=== PATIENT | female | born 1930 | race Caucasian/White ===

== ENCOUNTER 2016-08-24 12:35 | Inpatient (IN) | payer OTHER ==
[~2016-08-24] VITALS: Ht 147.3 cm; Wt 49.2 kg
[2016-08-24] MEDS ORDERED: AMLODIPINE BES2.5 M1 PO (14:00)
[2016-08-24] MEDS ORDERED: ENALAPRIL MALE2.5 MG PO (14:01)
[2016-08-24] MEDS ORDERED: ZOLOFT25 MG PO (14:01)
[2016-08-24] MEDS ORDERED: CLONAZEPAM0.5 MG PO (14:01)
[2016-08-24] MEDS ORDERED: PEPCID20 MG PO (14:01)
[2016-08-24 14:42] LABS: BASOPHIL % 0.2 % (0-2); PLATELET COUNT 314 x10^3mcL (130-400)
[2016-08-24 14:43] LABS: RED CELL DISTRIBUTION WIDTH 14.8 % (11.5-14.5)
[2016-08-24 15:09] LABS: ALKALINE PHOSPHATASE 92 U/L (46-116); ALT/SGPT 18 U/L (14-59); AST/SGOT 24 U/L (15-37); BILIRUBIN TOTAL 0.6 mg/dL (0.20-1.00); CARBON DIOXIDE 26.4 mmol/L (21-32); CHLORIDE SERUM 103 mmol/L (98-107); CREATININE SERUM 0.8 mg/dL (0.6-1.0); GLUCOSE SERUM 155 mg/dL (74-106); SODIUM SERUM 143 mmol/L (136-145); TOTAL PROTEIN, SERUM 6.4 g/dL (6.4-8.2)
[2016-08-24 15:10] LABS: ALBUMIN 2.6 g/dL (3.4-5.0)
[2016-08-24 15:12] LABS: POTASSIUM SERUM 2.9 mmol/L (3.5-5.1)
[2016-08-24 15:15] LABS: UA SPECIFIC GRAVITY >=1.030 (1.005-1.035); microscopic required? YES; urine erythrocyte NEGATIVE (NEGATIVE)
[2016-08-24 15:27] LABS: CK-MB 0.8 ng/mL (0-3.6)
[2016-08-24 16:30] LABS: CHOLESTEROL/HDL RATIO 3.2
[2016-08-24 16:39] LABS: FREE T4 1.52 ng/dL (0.76-1.46); FREE THYROXINE INDEX 3.3 ug/dL (1.4-4.5); T3 TOTAL 0.9 ng/mL
[2016-08-24 17:04] VITALS: BP 123/60
[2016-08-24 17:11] VITALS: BP 119/57
[2016-08-24 21:30] VITALS: BP 105/44
[2016-08-25] VITALS (7 sets, daily range): BP systolic 101–144; BP diastolic 48–62
[2016-08-25 05:46] LABS: PLATELET COUNT 249 x10^3mcL (130-400)
[2016-08-25 05:54] LABS: CALCIUM 8.2 mg/dL (8.5-10.1); CARBON DIOXIDE 26.1 mmol/L (21-32); CHLORIDE SERUM 108 mmol/L (98-107); CREATININE SERUM 0.7 mg/dL (0.6-1.0); GLUCOSE SERUM 108 mg/dL (74-106); MAGNESIUM 1.3 mg/dL (1.8-2.4); PHOSPHOROUS 2.8 mg/dL (2.5-4.9); POTASSIUM SERUM 3.7 mmol/L (3.5-5.1); SODIUM SERUM 142 mmol/L (136-145)
[2016-08-25 07:06] LABS: RED CELL DISTRIBUTION WIDTH 14.9 % (11.5-14.5)
[2016-08-25 08:53] LABS: BAND NEUTROPHIL 47 % (0-10); BASOPHIL 0 % (0-2); MONOCYTE 1 % (0-7); SEGMENTED NEUTROPHILS 45 % (37-75)
[2016-08-25 08:54] LABS: PLATELET MORPHOLOGY PLATELETS NORMAL
[2016-08-26 05:40] VITALS: BP 150/70
[2016-08-26 06:22] LABS: PLATELET COUNT 229 x10^3mcL (130-400)
[2016-08-26 06:30] LABS: RED CELL DISTRIBUTION WIDTH 15.1 % (11.5-14.5)
[2016-08-26 06:43] LABS: CALCIUM 8.9 mg/dL (8.5-10.1); CARBON DIOXIDE 26.1 mmol/L (21-32); CHLORIDE SERUM 107 mmol/L (98-107); CREATININE SERUM 0.7 mg/dL (0.6-1.0); GLUCOSE SERUM 112 mg/dL (74-106); MAGNESIUM 1.9 mg/dL (1.8-2.4); POTASSIUM SERUM 3.9 mmol/L (3.5-5.1); SODIUM SERUM 143 mmol/L (136-145)
[2016-08-26 08:00] VITALS: BP 153/76
[2016-08-26 10:51] LABS: BAND NEUTROPHIL 16 % (0-10); BASOPHIL 0 % (0-2); MONOCYTE 1 % (0-7); SEGMENTED NEUTROPHILS 79 % (37-75)
[2016-08-26 10:52] LABS: rbc morphology (normal/abnorm) ABNORMAL (NORMAL); tear drop cell (dacryocyte) 1+
[2016-08-26 10:53] LABS: PLATELET MORPHOLOGY PLATELETS NORMAL
[2016-08-26 14:49] VITALS: BP 134/96
[2016-08-26 17:57] VITALS: BP 130/89
[2016-08-26 21:13] VITALS: BP 149/63
[2016-08-27 06:21] VITALS: BP 137/60
[2016-08-27 06:27] LABS: PLATELET COUNT 258 x10^3mcL (130-400)
[2016-08-27 06:29] LABS: CARBON DIOXIDE 31.2 mmol/L (21-32); CHLORIDE SERUM 104 mmol/L (98-107); CREATININE SERUM 0.6 mg/dL (0.6-1.0); GLUCOSE SERUM 119 mg/dL (74-106); SODIUM SERUM 146 mmol/L (136-145)
[2016-08-27 06:51] LABS: POTASSIUM SERUM 2.9 mmol/L (3.5-5.1)
[2016-08-27 07:43] LABS: RED CELL DISTRIBUTION WIDTH 14.8 % (11.5-14.5)
[2016-08-27 08:32] LABS: BAND NEUTROPHIL 14 % (0-10); BASOPHIL 0 % (0-2); MONOCYTE 2 % (0-7); SEGMENTED NEUTROPHILS 80 % (37-75)
[2016-08-27 08:33] LABS: PLATELET MORPHOLOGY PLATELETS NORMAL; rbc morphology (normal/abnorm) ABNORMAL (NORMAL); tear drop cell (dacryocyte) 1+
[2016-08-27 08:48] LABS: burr cell (echinocyte) 1+; target cell (codocyte) 1+
[2016-08-27 09:45] VITALS: BP 159/68
[2016-08-27 13:20] VITALS: BP 142/64
[2016-08-27 17:04] VITALS: BP 149/66
[2016-08-27 20:21] VITALS: BP 145/71
[2016-08-28 05:26] VITALS: BP 136/65
[2016-08-28 09:56] VITALS: BP 87/40
== END 2016-08-28 23:48 | disposition expired | DRG 137 ==
LOC: ED 12:35 → DU 14:23
PROVIDERS: Emergency Medicine; Family Medicine; ADMIT Family Medicine
DX: J69.0 Pneumonitis due to inhalation of food and vomit (principal); J96.00 Acute respiratory failure, unspecified whether with hypoxia or hypercapnia; N17.0 Acute kidney failure with tubular necrosis; E43 Unspecified severe protein-calorie malnutrition; E87.6 Hypokalemia; F41.8 Other specified anxiety disorders; K21.9 Gastro-esophageal reflux disease without esophagitis; M94.0 Chondrocostal junction syndrome [Tietze]; I10 Essential (primary) hypertension; L71.9 Rosacea, unspecified; M16.12 Unilateral primary osteoarthritis, left hip; Z66 Do not resuscitate; Z51.5 Encounter for palliative care; Z68.21 Body mass index [BMI] 21.0-21.9, adult
CPT/HCPCS: 36600; 82962; 83880; 84439; 85378; 92610; 94150; C9113; J0456; J0696; J1885; J1940; J1956; J2060; J2270; J2405; J2543; J2920; J3475; J3480; J7030; J7040; J7050; J7620; Q0092; Q9967